=== PATIENT | male | born 1995 | race Caucasian/White ===

== ENCOUNTER 2022-01-23 13:23 | Emergency (ER) | payer OTHER, SELFPAY ==
[2022-01-23 13:52] VITALS: BP 136/82; PULSE 71; RESP 20; TEMP 36.8; O2SAT 98; BMI 31.7
[2022-01-23 14:28] LABS: COVID19 -Nasal RAPID Negative (Negative)
--- NOTE | 2022-01-23 16:31 | ED_ITS ---
HPI - URI/Sore Throat <DIONNE Nayak Last Filed: 01/23/22 16:59> General Chief Complaint: Upper Respiratory Symptoms Stated Complaint: sore throat Time Seen by Provider: 01/23/22 16:30 Source: patient Mode of arrival: Ambulatory History of Present Illness HPI Narrative: Patient is 26-year-old male who presents to the emergency room today with complaint of sore throat since Tuesday night. States Tuesday night he noticed that his throat was scratchy in progress to a sore throat today. Also states she has an associated cough periodic sensation of shortness of breath but denies any chest pain. States she has taken [id number] Advil to help with this condition. Denies any other concerns Related Data Allergies Allergy/AdvReac Type Severity Reaction Status Date / Time No Known Drug Allergies Allergy Verified 01/23/22 13:52 Review of Systems <Rocael Cleaning PA-C - Last Filed: 01/23/22 16:59> Review of Systems Narrative: R.O.S.: General: No fever, chills or fatigue. Cardiovascular: No chest pain or palpitations Respiratory: Sore throat HEENT: No congestion, ear pain, rhinorrhea, sore throat or tinnitus Gastrointestinal: No nausea or vomiting : No urinary concerns Skin: No rash or associated abnormalities Musculoskeletal: No pain in muscles or joints, no limitation of range of motion, no paresthesia or numbness. ?? Neurological: Awake, alert and in not apparent distress. No Headaches, changes in vision or other related neurological concerns. Patient History <DIONNE Nayak Last Filed: 01/23/22 16:59> Social History Smoking Status: Current every day smoker Smoking Status: Current every day smoker tobacco type: vaping alcohol intake frequency: a few times a week Substance Use Type: does not use Exam <DIONNE Nayak Last Filed: 01/23/22 16:59> Narrative Exam Narrative: Physical Exam: ? General: normal appearance, well developed, well nourished, alert, and awake. Not in acute distress. ? Head: Normocephalic, no lesions. Chest: Lungs CTAB, no rales, rhonchi or wheezes. ?? Heart: RRR, no murmurs, rubs or gallops. Eyes: PERRLA, EOM's full, conjunctivae clear. ? Throat: Patient has slightly enlarged tonsils bilaterally. Tonsils however are nonerythematous and without drainage. Uvula is also midline without drainage or erythema. Neuro: Physiological, no localizing findings, CN3-12 intact. ?? Extremities: Warm, well perfused, FROM, no deformities, no edema. ?? Skin: Normal, no rashes, no lesions noted. ?? PSYCHIATRIC: The mood is good, no blunted affect. Speech is clear. Thought process is linear, thought content is appropriate. The voice is without significant inflection. Gastrointestinal: Soft; NT; ND; Pos BS with Neg. rebound tenderness. No scars or major deformities noted on Visual Inspection. Initial Vital Signs Initial Vital Signs: Vital Signs Temperature 98.2 F 01/23/22 13:52 Pulse Rate 71 01/23/22 13:52 Respiratory Rate 20 01/23/22 13:52 Blood Pressure 136/82 01/23/22 13:52 Pulse Oximetry 98 01/23/22 13:52 Oxygen Delivery Method 01/23/22 13:52 <Shelly Villarreal MD - Last Filed: 01/24/22 07:24> Initial Vital Signs Initial Vital Signs: Vital Signs Temperature 98.2 F 01/23/22 13:52 Pulse Rate 71 01/23/22 13:52 Respiratory Rate 20 01/23/22 13:52 Blood Pressure 136/82 01/23/22 13:52 Pulse Oximetry 98 01/23/22 13:52 Oxygen Delivery Method 01/23/22 13:52 Course <Rocael Cleaning PA-C - Last Filed: 01/23/22 16:59> Orders Ordered: ED Orders 01/23/22 13:55 COVID19 -Nasal RAPID/Pre-Proc Stat Vital Signs Vital signs: Vital Signs - 8 hr 01/23/22 13:52 Temperature 98.2 F Pulse Rate 71 Respiratory Rate 20 Blood Pressure 136/82 Pulse Oximetry 98 Oxygen Delivery Method Room Air <Shelly Villarreal MD - Last Filed: 01/24/22 07:24> Orders Ordered: ED Orders 01/23/22 13:55 COVID19 -Nasal RAPID/Pre-Proc Stat Vital Signs Vital signs: Vital Signs - 8 hr 01/23/22 13:52 Temperature 98.2 F Pulse Rate 71 Respiratory Rate 20 Blood Pressure 136/82 Pulse Oximetry 98 Oxygen Delivery Method Room Air MDM - URI/Sore Throat <Rocael Cleaning PA-C - Last Filed: 01/23/22 16:59> Lab Data Labs: Lab Results 01/23/22 Range/Units 13:55 SARS-CoV-2 (PCR) Negative (Negative) Point of Care Testing Rapid Strep A Negative MDM Narrative Medical decision making narrative: Patient is a 26-year-old male who presents to the emergency room today with complaint of sore throat that started on Tuesday night. Strep throat and COVID tests were negative. Reveal any urgent emergent concerns. Singing Messenger discussed home remedies [id number] medications the patient can use for symptomatic management of his symptoms patient advised to return to the emergency room should any emergent concerns arise. Patient agrees with plan <Shelly Villarreal MD - Last Filed: 01/24/22 07:24> Lab Data Labs: Lab Results 01/23/22 Range/Units 13:55 SARS-CoV-2 (PCR) Negative (Negative) Point of Care Testing Rapid Strep A Negative Discharge Plan Departure Patient Disposition: Home Clinical Impression: Viral infection Instructions: DI for Viral Upper Respiratory Infection -- Adult Activity Restrictions/Additional Instructions: *You have been diagnosed with a viral upper respiratory infection. [ ] *What to do: *Please continue to take your regular medications as directed. [ ] New medication prescriptions sent to your pharmacy: [ ] [ ] New medication written as a paper prescription [x] No new medications given *Please follow up with your primary care provider in 2-3 days, call for an appointment. Let them know you were seen in the Emergency Department and that we ask that you be seen in follow up. We will electronically transmit a record of today's note if your PCP is in our system *If you do not have a primary care provider please contact the [facility] Resource line at [phone]. They will ask some questions about your medical history and help get you set up with a doctor in the community. *Return to Emergency Department if you should have any new, worsening or co ncerning symptoms, such as [fever greater than 101 F, shaking chills, worsening pain, persistent vomiting or other bothersome symptoms] Referrals: Mariah Santamaria [Primary Care Provider] - Stand Alone Forms: Work Release Note Visit Report Forms: Patient Portal/API <Shelly Villarreal MD - Last Filed: 01/24/22 07:24> Cosign ED Attending Cosignature Attestation: I was immediately available in the department for consultation throughout this patient's visit. I agree with documentation as above. Shelly Villarreal MD
== END 2022-01-23 17:04 | disposition home or self-care (01) ==
PROVIDERS: Emergency Medicine; Emergency Provider Physician Assistant
DX: J06.9 Acute upper respiratory infection, unspecified (principal); Z20.822 Contact with and (suspected) exposure to COVID-19
CPT/HCPCS: 87635; 87880; 99281; 99282; C9803